=== PATIENT | male | born 2000 | race Caucasian/White ===

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

== ENCOUNTER 2020-07-15 20:03 | Observation (INO) | payer OTHER, SELFPAY ==
[2020-07-15] MEDS ORDERED: Lorazepam 2 MG/ML VIAL ONE (20:05)
[2020-07-15] MEDS ORDERED: Morphine 4 MG/ML VIAL ONE ×2 (20:11→20:59)
[2020-07-15] MEDS ORDERED: Ondansetron PF 4 MG/2 ML Vial ONE (20:11)
[2020-07-15 20:51] LABS: #Eosinphils 0.1 thou/uL (0.0-0.7); #Lymphocytes 2.5 thou/uL (1.20-3.40); #Monocytes 0.7 thou/uL (0.11-0.59); #Neutrophils 5.7 thou/uL (1.40-6.50); %Basophils 0.3 % (0.0-1.0); %Eosinophils 1.6 % (0.0-10.0); %Lymphocytes 27.2 % (28.0-48.0); %Monocytes 8.2 % (0.0-4.0); %Neutrophils 62.6 % (31.0-61.0); Hemoglobin 16.7 g/dL (14.0-18.0); Mean Corpuscular HGB CONC 34.3 g/dL (32.0-36.0); Mean Corpuscular Hemoglobin 29.5 pg (25.0-35.0); Mean Corpuscular Volume 86.2 fL (78.0-98.0); Mean Platelet Volume 6.9 fL (7.4-10.4); Platelet Count 354 thou/uL (130-400); RBC Distribution Width 11.2 % (11.5-14.5); Red Blood Cell (RBC) Count 5.66 mill/uL (4.00-5.20)
[2020-07-15 21:07] LABS: ALT (SGPT) 26 U/L (8-55); AST (SGOT) 21 U/L (5-34); Albumin 4.8 g/dL (3.5-5.0); Alkaline Phosphatase 66 U/L (50-130); Anion Gap 19 mmol/L (10-20); BUN (Urea Nitrogen) 16 mg/dL (8.9-20.6); Bilirubin, Total 0.8 mg/dL (0.2-1.2); Calc. Creatinine Clearance 0 mL/min (70-130); Calcium 9.6 mg/dL (7.8-10.44); Carbon Dioxide 23 mmol/L (22-29); Chloride 104 mmol/L (98-107); Glucose 103 mg/dL (70-105); Lipase 21 U/L (8-78); Potassium 3.6 mmol/L (3.5-5.1); Protein, Total 7.8 g/dL (6.0-8.3); Sodium 142 mmol/L (136-145)
[2020-07-15 21:08] LABS: Acetaminophen Less than 6.0 mcg/mL (10.0-30.0); Alcohol Less than 10 mg/dL (Less than 10); Salicylate Less than 8.0 mg/dL (15.0-30.0)
--- NOTE | 2020-07-15 21:10 | RAD ---
PORTABLE CHEST: 07/15/20 PROVIDED CLINICAL HISTORY: Altered mental status. FINDINGS: Comparison 08/31/19. The cardiac silhouette appears enlarged, which may be at least partially on the basis of portable bing hnique. No focal consolidation is evident. Evaluation for pleural fluid or pneumothorax is limited gi kwame the supine nature of the study, without gross evidence for such. IMPRESSION: No evidence for an acute cardiopulmonary process. POS: [facility]
--- NOTE | 2020-07-15 21:28 | CT ---
EXAM: CT brain without contrast HISTORY: Altered mental status COMPARISON: 08/31/2019 TECHNIQUE: Multiple contiguous axial images were obtained and a CT of the brain without contrast. FINDINGS: The brain is normal in morphology and attenuation without focal lesions or confluent areas of infarction. There is no evidence of hydrocephalus, intracranial hemorrhage, or extra-axial fluid collection. The calvarium and overlying soft tissues are unremarkable. The visualized paranasal sinuses and masto id air cells are well aerated. IMPRESSION: No evidence of acute intracranial abnormality
--- NOTE | 2020-07-15 21:35 | CT ---
CT Abdomen Pelvis W Con: 07/15/2020 9:00 PM CLINICAL INFORMATION: Left-sided abdominal pain COMPARISON: 12/27/2019 TECHNIQUE: Multiple contiguous axial images were obtained and a CT of the abdomen and pelvis with IV contrast. C oronal and sagittal reformats were performed. FINDINGS: Lower Chest: within normal limits. Abdomen: Liver: within normal limits. Bile Ducts: Normal caliber. Gallbladder: No calcified gallstones. Normal caliber wall. Pancreas: within normal limits. Spleen: Calcified granuloma. Mildly enlarged measuring 14.1 cm. Adrenals: within normal limits. Kidneys: within normal limits. Pelvis: Reproductive Organs: No pelvic masses. Ureters: within normal limits. Bladder: within normal limits. Peritoneum: No ascites or free air, no fluid collection. Bowel: Normal caliber. Mesentery and Retroperitoneum: No enlarged mesenteric or retroperitoneal lymph nodes. Vessels: Normal. Abdominal Wall: within normal limits. Bones: Bilateral L5 pars defects. IMPRESSION: 1. No evidence of acute intraabdominal or pelvic abnormality. 2. Stable mild splenomegaly
[2020-07-15] MEDS ORDERED: diphenhydrAMINE 50 MG/ML VIAL ONE (21:41)
[2020-07-15] MEDS ORDERED: Haloperidol Lactate 5 MG/ML VIAL ONE (21:50)
[2020-07-15 23:18] LABS: Amphetamine Not Detected (NotDetected); Barbiturates Screen Not Detected (NotDetected); Benzodiazepine Screen Detected (NotDetected); Cocaine Metabolite Screen Not Detected (NotDetected); Medtox Control Line Valid? VALID (VALID); Medtox Reader # READER 1; Methadone Not Detected (NotDetected); Methamphetamine Not Detected (NotDetected); Opiate Screen Detected (NotDetected); Oxycodone Screen Not Detected (NotDetected); Phencyclidine (PCP) Not Detected (NotDetected); THC/Cannabinoid Screen Not Detected (NotDetected); Tricyclic Screen Not Detected (NotDetected)
--- NOTE | 2020-07-16 00:11 | PDOC.HHP ---
Hospitalist HPI - History of Present Illness AMS History of Present Illness: This is a 22-year-old male patient with no significant past medical history besides recent left upper quadrant pain with splenomegaly presents today with brief episodes of altered mental status. He is a bounce back He was recently seen here and managed for right upper quadrant pain which turned out to be mild splenomegaly with no clear etiology. Today he was driving to [place] with his family when they noticed that he had sanchez ddenly planned out if his eyes rolled up was and was mute. They brought him to the ED for further evaluation. As presentation his blood pressure was 148/107, pulse 126, respiratory 20 and saturating 98 on room air. His temperature was 97.9. Labs showed no significant abnormalities. UDS was positive for opiates and benzodiazepine. He was given 1 L normal saline, Benadryl, morphine and Haldol with subsequent spontaneous resolution of his altered mental state. At the time of my evaluation he was A and O x4 in no acute distress besides complaining of mild left upper quadrant pain. He denied any chest pain shortness of breath vomiting diarrhea constipation. CT scan of his head was negative. Abdominal CT showed no acute events besides stable mild splenomegaly. Hospitalist ROS - Review of Systems Constitutional: denies: fever, chills, sweats, weakness Respiratory: denies: cough, dry, shortness of breath, hemoptysis Cardiovascular: denies: chest pain, palpitations, orthopnea, paroxysmal noc. dyspnea Gastrointestinal: reports: abdominal pain. denies: nausea, vomiting, diarrhea, constipation (Left upper quadrant) Musculoskeletal: denies: neck pain, shoulder pain, arm pain Neurological: denies: weakness, numbness, incoordination Hospitalist History - Past Medical History Other Medical History: Mild splenic enlargement. - Past Surgical History Past Surgical History: reports: no pertinent history - Family History Family History: reports: no pertinent history - Social History Smoking Status: Never smoker Alcohol: reports: None Living Situation: With Family - Exam General Appearance: awake alert General - other findings: In no acute distress Eye: PERRL, anicteric sclera ENT: normocephalic atraumatic, no oropharyngeal lesions Neck: supple, symmetric, no JVD, no thyromegaly Heart: RRR, no murmur, no gallops, no rubs Respiratory: CTAB, no wheezes, no rales, no ronchi Gastrointestinal: soft, non-distended (Left upper quadrant), normal bowel sounds, tender to palpation Extremities: no cyanosis, no clubbing, no edema Neurological: cranial nerve grossly intact, no weakness, no focal deficits Musculoskeletal: normal tone, normal strength, no muscle wasting Psychiatric: normal affect, normal behavior, A&O x 3 Hospitalist Results - Labs Result Diagrams: 07/16/20 05:00 07/16/20 05:00 Lab results: WBC 9.0 thou/uL (4.8-10.8) 07/15/20 20:07 Hgb 16.7 g/dL (14.0-18.0) 07/15/20 20:07 Hct 48.8 % (42.0-52.0) 07/15/20 20:07 MCV 86.2 fL (78.0-98.0) 07/15/20 20:07 Plt Count 354 thou/uL (130-400) 07/15/20 20:07 Neutrophils % 62.6 % (31.0-61.0) H 07/15/20 20:07 Sodium 142 mmol/L (136-145) 07/15/20 20:07 Potassium 3.6 mmol/L (3.5-5.1) 07/15/20 20:07 Chloride 104 mmol/L (98-107) 07/15/20 20:07 Carbon Dioxide 23 mmol/L (22-29) 07/15/20 20:07 BUN 16 mg/dL (8.9-20.6) 07/15/20 20:07 Creatinine 0.99 mg/dL (0.7-1.3) 07/15/20 20:07 Glucose 103 mg/dL (70-105) 07/15/20 20:07 Calcium 9.6 mg/dL (7.8-10.44) 07/15/20 20:07 Total Bilirubin 0.8 mg/dL (0.2-1.2) 07/15/20 20:07 AST 21 U/L (5-34) 07/15/20 20:07 ALT 26 U/L (8-55) 07/15/20 20:07 Alkaline Phosphatase 66 U/L (50-130) 07/15/20 20:07 Troponin I Less than 0.010 ng/mL (< 0.028) 07/15/20 20:07 Serum Total Protein 7.8 g/dL (6.0-8.3) 07/15/20 20:07 Albumin 4.8 g/dL (3.5-5.0) 07/15/20 20:07 Lipase 21 U/L (8-78) 07/15/20 20:07 Hospitalist H&P A/P - Plan Plan: This is a 20-year-old male patient with a history of mild splenomegaly presenting with altered mental status of unclear etiology. Currently resolved and back to baseline. Acute encephalopathy Etiology not clear possible seizure We will admit and observe him overnight. Neuro evaluation in a.m. Mild splenomegaly This is stable We will monitor. Abnormal UDS. Has been opiates and benzodiazepines He is on not on his medication list Possible abuse VT prophylaxisSCD CODE STATUSfull code
[2020-07-16 01:58] VITALS: BMI 31.1
[2020-07-16] MEDS ORDERED: traMADol HCl 50 MG TAB PO SCH (04:00)
[2020-07-16 05:30] LABS: #Eosinphils 0.1 thou/uL (0.0-0.7); #Lymphocytes 1.4 thou/uL (1.20-3.40); #Monocytes 0.4 thou/uL (0.11-0.59); #Neutrophils 4.5 thou/uL (1.40-6.50); %Basophils 0.7 % (0.0-1.0); %Eosinophils 0.8 % (0.0-10.0); %Lymphocytes 22.2 % (28.0-48.0); %Monocytes 6.5 % (0.0-4.0); %Neutrophils 69.8 % (31.0-61.0); Hemoglobin 14.5 g/dL (14.0-18.0); Mean Corpuscular HGB CONC 35.4 g/dL (32.0-36.0); Mean Corpuscular Hemoglobin 30.8 pg (25.0-35.0); Mean Platelet Volume 6.9 fL (7.4-10.4); Platelet Count 254 thou/uL (130-400); RBC Distribution Width 11.1 % (11.5-14.5); Red Blood Cell (RBC) Count 4.71 mill/uL (4.00-5.20); White Blood Cell (WBC) Count 6.5 thou/uL (4.8-10.8)
[2020-07-16 05:52] LABS: Anion Gap 11 mmol/L (10-20); BUN (Urea Nitrogen) 12 mg/dL (8.9-20.6); Calc. Creatinine Clearance 184 mL/min (70-130); Calcium 8.7 mg/dL (7.8-10.44); Carbon Dioxide 29 mmol/L (22-29); Chloride 106 mmol/L (98-107); Glucose 82 mg/dL (70-105); Potassium 3.8 mmol/L (3.5-5.1); Sodium 142 mmol/L (136-145)
[2020-07-16] MEDS ORDERED: traMADol HCl 50 MG TAB PO PRN (08:31)
[2020-07-16] MEDS ORDERED: Ketorolac Tromethamine 30 MG/ML VIAL IVP PRN (08:31)
[2020-07-16 09:51] LABS: SARS-CoV-2 MS2 Positive; SARS-CoV-2 N Gene Negative; SARS-CoV-2 S Gene Negative; SARS-CoV-2 by NAA Not Detected (NotDetected); SARS-CoV-2 orf1ab Negative
[2020-07-16 12:07] VITALS: BP 121/67; TEMP 97.9
--- NOTE | 2020-07-16 12:35 | CON ---
DATE OF CONSULTATION: 07/16/2020 CONSULTING PHYSICIAN: Hospitalist Service. IMPRESSION: First seizure with a negative workup. PLAN: The patient can be discharged home with seizure precautions. HISTORY OF PRESENT ILLNESS: Mr. 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 He apparently had a witnessed seizure at some point prior to admission. He had been complaining of some left upper quadrant pain prior to the onset. He does not recall any type of prodromal sensation before he blacked out. He was subsequently admitted. His CT of the brain was unremarkable. All his lab work was in normal range. He had an EEG done earlier, which is normal as well. He denies a past history of head injury, meningitis, or encephalitis. There is no family history of seizures. He was on no medications. He was given some pain medicine and a benzodiazepine in the emergency room. He otherwise is back to his baseline. ALLERGIES: NONE. SOCIAL HISTORY: No tobacco or alcohol use. FAMILY HISTORY: Noncontributory. REVIEW OF SYSTEMS: Ten-system review of systems is otherwise negative. PHYSICAL EXAMINATION: GENERAL: He is a healthy-appearing young man, in no distress. VITAL SIGNS: Stable. He has been afebrile. HEENT: Pupils are equal and reactive. Conjunctivae are clear. NECK: Supple. SKIN: Clear. ABDOMEN: Soft. EXTREMITIES: No cyanosis or edema. NEUROLOGIC: He is alert and appropriate. His speech is fluent and clear. He has no focal deficits or abnormal movements. SUMMARY: He is a young healthy young man with a first seizure. He does not appear to have any predisposing factors. His workup is otherwise unremarkable. I think he can be discharged home for outpatient followup. Job ID: [id number]
--- NOTE | 2020-07-16 15:57 | PDOC.DS.DS ---
Provider - Provider Date of Admission: 07/15/20 23:59 Date of Discharge: 07/16/20 Admitting Provider: Gama Bear MD Consultations: Neurology Primary Care Physician: NO PCP PROVIDER Course - Hospital Course Hospital Course: Mr. Hansen is a 20-year-old patient who was hospitalized after he suffered what appeared to be a seizure episode while out with family. He has no prior history of seizures. He was admitted and he had CT of the head done that did not show any acute findings. He subsequently had an EEG which per neurology did not show any evidence of acute seizures. He was noted to have mild splenomegaly during his last hospitalization but his CBC was completely normal. We discussed options for seizure precautions. He knows that he should not drive at least for the next 3 months or until he sees a neurologist. He will take Tylenol as needed for pain. He is discharged today in a stable condition. Resuscitation Status: 07/16/20 00:06 Resuscitation Status Routine Resuscitation Status: FULL: Full Resuscitation - Labs Lab Results: 07/16/20 05:00 07/16/20 05:00 Abnormal Lab Results - Last 48 hrs 07/15/20 20:07: RBC 5.66 H, RDW 11.2 L, MPV 6.9 L, Neutrophils % 62.6 H, Lymphocytes % 27.2 L, Monocytes % 8.2 H, Monocytes # 0.7 H 07/15/20 20:07: Salicylates Less than 8.0 L, Acetaminophen Less than 6.0 L 07/15/20 22:26: Urine Opiates Screen Detected H, U Benzodiazepines Scrn Detected H 07/16/20 05:00: Hct 41.0 L, RDW 11.1 L, MPV 6.9 L, Neutrophils % 69.8 H, Lymphocytes % 22.2 L, Monocytes % 6.5 H - Physical Exam Vitals: Vital Signs (12 hours) Temp Pulse Resp BP Pulse Ox 07/16/20 11:23 97.9 F 86 16 121/67 96 07/16/20 07:34 97.8 F 87 18 122/70 98 07/16/20 04:00 97.4 F L 70 20 118/68 99 Weight Weight 211 lb 3.2 oz Physical Exam: The patient was seen and examined on the day of discharge. Problem - Problem (1) Abdominal pain Code(s): R10.9 - UNSPECIFIED ABDOMINAL PAIN Status: Acute (2) Anxiety disorder Code(s): F41.9 - ANXIETY DISORDER, UNSPECIFIED Status: Chronic Qualifiers: Anxiety disorder type: generalized anxiety disorder Qualified Code(s): F41.1 - Generalized anxiety disorder - Time spent with Patient (mins): 30 Plan - Discharge Medications Home Medications: Medication Instructions Recorded Confirmed Type No Known 08/31/19 07/16/20 History Allergies: No Known Allergies Allergy (Verified 07/16/20 02:09) per pt - Discharge Instructions Activity:: Activity as Tolerated Nourishment:: No Restrictions Therapies:: Not Applicable Equipment/Supplies:: Not Applicable - Follow up Plan Referrals: Monty Paulino MD [Active] - 3-4 Weeks PROVIDER,NO PCP [Primary Care Provider] - 10 Days Disposition: HOME Quality - Care Measures CORE MEASURES:: N/A
== END 2020-07-16 15:25 | disposition home or self-care (01) ==
LOC: ERS 20:03 → EEVIPCON 20:03 → 2SE 23:59 → UNDOADMOB 07-16 → 2SE 07-16
PROVIDERS: ADMIT Student in an Organized Health Care Education/Training Program; ATTEND Hospitalist
DX: G93.40 Encephalopathy, unspecified (principal); R16.1 Splenomegaly, not elsewhere classified; F41.1 Generalized anxiety disorder; Z20.828 Contact with and (suspected) exposure to other viral communicable diseases
CPT/HCPCS: 36415; 36416; 70450; 71045; 74177; 80048; 80053; 80306; 80307; 83690; 84484; 85025; 87635; 93005; 95816; 95819; 96374; 96375; 96376; G0378; J1200; J1630; J1885; J2060; J2270; J2405; Q9967; U0003

== ENCOUNTER 2021-01-18 08:30 | Emergency (ER) | payer SELFPAY ==
[2021-01-18] MEDS ORDERED: Lorazepam 2 MG/ML VIAL ONE (08:40)
[2021-01-18 08:56] LABS: #Eosinphils 0.2 thou/uL (0.0-0.7); #Lymphocytes 2.1 thou/uL (1.20-3.40); #Monocytes 0.9 thou/uL (0.11-0.59); #Neutrophils 3.3 thou/uL (1.40-6.50); %Basophils 0.4 % (0.0-1.0); %Eosinophils 2.4 % (0.0-10.0); %Lymphocytes 32.6 % (28.0-48.0); %Monocytes 13.4 % (0.0-4.0); %Neutrophils 51.1 % (31.0-61.0); Mean Corpuscular HGB CONC 33.6 g/dL (32.0-36.0); Mean Corpuscular Volume 89.2 fL (78.0-98.0); Mean Platelet Volume 7.1 fL (7.4-10.4); Platelet Count 308 thou/uL (130-400); RBC Distribution Width 11.3 % (11.5-14.5); Red Blood Cell (RBC) Count 5.68 mill/uL (4.00-5.20); White Blood Cell (WBC) Count 6.5 thou/uL (4.8-10.8)
[2021-01-18 09:16] LABS: ALT (SGPT) 27 U/L (8-55); AST (SGOT) 35 U/L (5-34); Albumin 4.6 g/dL (3.5-5.0); Alkaline Phosphatase 65 U/L (50-130); Anion Gap 17 mmol/L (10-20); BUN (Urea Nitrogen) 11 mg/dL (8.9-20.6); Bilirubin, Total 0.4 mg/dL (0.2-1.2); Calc. Creatinine Clearance 0 mL/min (70-130); Calcium 9.6 mg/dL (7.8-10.44); Carbon Dioxide 19 mmol/L (22-29); Chloride 107 mmol/L (98-107); Globulin 3.8 g/dL (2.4-3.5); Glucose 101 mg/dL (70-105); Potassium 3.8 mmol/L (3.5-5.1); Protein, Total 8.4 g/dL (6.0-8.3); Sodium 139 mmol/L (136-145)
== END 2021-01-18 10:50 | disposition home or self-care (01) ==
LOC: ERS 08:30 → EEVIPCON 08:30 → ERS 10:50
DX: R56.9 Unspecified convulsions (principal); F41.9 Anxiety disorder, unspecified; J45.909 Unspecified asthma, uncomplicated
CPT/HCPCS: 80053; 85025; 93005; 96374; J2060

== ENCOUNTER 2021-05-30 17:40 | Emergency (ER) | payer MEDICARE ==
[2021-05-30] MEDS ORDERED: Ketorolac Tromethamine 30 MG/ML VIAL ONE (17:52)
[2021-05-30] MEDS ORDERED: Lorazepam 2 MG/ML VIAL ONE (17:52)
== END 2021-05-30 19:25 | disposition home or self-care (01) ==
LOC: ERS 17:40
DX: S93.401A Sprain of unspecified ligament of right ankle, initial encounter (principal); W10.9XXA Fall (on) (from) unspecified stairs and steps, initial encounter
CPT/HCPCS: 96374; 96375; J1885; J2060

== ENCOUNTER 2022-04-18 06:45 | Emergency (ER) | payer MEDICARE ==
[2022-04-18] MEDS ORDERED: LORazepam 2 MG/ML SYRINGE ONE (06:49)
[2022-04-18 07:10] LABS: #Eosinphils 0.2 thou/uL (0.0-0.7); #Lymphocytes 2.5 thou/uL (1.20-3.40); #Monocytes 0.6 thou/uL (0.11-0.59); #Neutrophils 2.7 thou/uL (1.40-6.50); %Eosinophils 3.9 % (0.0-10.0); %Lymphocytes 41.6 % (21.0-51.0); %Monocytes 9.7 % (0.0-10.0); %Neutrophils 44.8 % (42.0-75.0); Hemoglobin 16.4 g/dL (14.0-18.0); Mean Corpuscular HGB CONC 35.3 g/dL (32.0-36.0); Mean Corpuscular Hemoglobin 31.3 pg (27.0-31.0); Mean Corpuscular Volume 88.6 fL (78.0-98.0); Mean Platelet Volume 6.8 fL (7.4-10.4); Platelet Count 306 thou/uL (130-400); Red Blood Cell (RBC) Count 5.24 mill/uL (4.70-6.10)
[2022-04-18 07:34] LABS: ALT (SGPT) 32 U/L (8-55); AST (SGOT) 26 U/L (5-34); Albumin 4.8 g/dL (3.5-5.0); Alkaline Phosphatase 67 U/L (40-110); Anion Gap 14 mmol/L (10-20); BUN (Urea Nitrogen) 21 mg/dL (8.9-20.6); Bilirubin, Total 0.9 mg/dL (0.2-1.2); Calc. Creatinine Clearance 0 mL/min (70-130); Calcium 9.6 mg/dL (7.8-10.44); Carbon Dioxide 24 mmol/L (22-29); Chloride 103 mmol/L (98-107); Estimated GFR 94; Glucose 107 mg/dL (70-105); Protein, Total 7.8 g/dL (6.0-8.3); Sodium 138 mmol/L (136-145)
[2022-04-18 07:41] LABS: Potassium 2.9 mmol/L (3.5-5.1)
[2022-04-18] MEDS ORDERED: Potassium Chloride 20 MEQ TAB ONE (08:07)
== END 2022-04-18 08:22 | disposition home or self-care (01) ==
LOC: ERS 06:45
DX: G40.909 Epilepsy, unspecified, not intractable, without status epilepticus (principal)
CPT/HCPCS: 36415; 80053; 83605; 84146; 85025; 96374

== ENCOUNTER 2022-05-13 14:29 | Emergency (ER) | payer MEDICARE ==
[2022-05-13] MEDS ORDERED: Metoclopramide HCl 10 MG/2 ML VIAL ONE (14:43)
[2022-05-13 14:58] LABS: #Eosinphils 0.5 thou/uL (0.0-0.7); #Lymphocytes 2.2 thou/uL (1.20-3.40); #Monocytes 0.8 thou/uL (0.11-0.59); #Neutrophils 3.9 thou/uL (1.40-6.50); %Basophils 0.2 % (0.0-1.0); %Eosinophils 6.9 % (0.0-10.0); %Monocytes 10.4 % (0.0-10.0); %Neutrophils 52.5 % (42.0-75.0); Hemoglobin 15.8 g/dL (14.0-18.0); Mean Corpuscular Volume 88.5 fL (78.0-98.0); Platelet Count 323 thou/uL (130-400); RBC Distribution Width 11.3 % (11.5-14.5); Red Blood Cell (RBC) Count 5.26 mill/uL (4.70-6.10); White Blood Cell (WBC) Count 7.4 thou/uL (4.8-10.8)
[2022-05-13 15:08] LABS: ALT (SGPT) 42 U/L (8-55); AST (SGOT) 31 U/L (5-34); Acetaminophen Less than 10.0 mcg/mL (10.0-30.0); Albumin 4.6 g/dL (3.5-5.0); Alcohol Less than 10 mg/dL (Less than 10); Alkaline Phosphatase 67 U/L (40-110); Anion Gap 16 mmol/L (10-20); BUN (Urea Nitrogen) 14 mg/dL (8.9-20.6); Bilirubin, Total 0.8 mg/dL (0.2-1.2); CK (CPK) 90 U/L (30-200); Calc. Creatinine Clearance 0 mL/min (70-130); Calcium 9.3 mg/dL (7.8-10.44); Carbon Dioxide 22 mmol/L (22-29); Chloride 105 mmol/L (98-107); Estimated GFR 118; Globulin 2.9 g/dL (2.4-3.5); Glucose 94 mg/dL (70-105); Potassium 3.8 mmol/L (3.5-5.1); Protein, Total 7.5 g/dL (6.0-8.3); Salicylate Less than 8.0 mg/dL (15.0-30.0); Sodium 139 mmol/L (136-145)
[2022-05-13 15:43] LABS: Bilirubin Negative (Negative); Blood, Urine Negative (Negative); Clarity Clear (Clear); Glucose, Urine (Dipstick) Normal (Negative); Ketone, Urine Negative (Negative); Leukocyte Negative Leu/uL (Negative); Nitrite Negative (Negative); Protein, Urine (Dipstick) 10 mg/dL (Neg-Trace); Specific Gravity, Urine 1.029 (1.002-1.036)
[2022-05-13] MEDS ORDERED: Ketorolac Tromethamine 30 MG/ML VIAL ONE (15:43)
[2022-05-13 15:52] LABS: Amphetamine Not Detected (NotDetected); Barbiturates Screen Not Detected (NotDetected); Benzodiazepine Screen Not Detected (NotDetected); Cocaine Metabolite Screen Not Detected (NotDetected); Methadone Not Detected (NotDetected); Methamphetamine Not Detected (NotDetected); Opiate Screen Not Detected (NotDetected); Oxycodone Screen Not Detected (NotDetected); Phencyclidine (PCP) Not Detected (NotDetected); THC/Cannabinoid Screen Not Detected (NotDetected); Tricyclic Screen Not Detected (NotDetected)
== END 2022-05-13 16:36 | disposition home or self-care (01) ==
LOC: ERS 14:29
DX: R56.9 Unspecified convulsions (principal)
CPT/HCPCS: 36415; 70450; 80053; 80306; 80307; 81003; 82550; 83605; 85025; 93005; 96374; 96375; J1885; J2765

== ENCOUNTER 2022-07-09 15:38 | Emergency (ER) | payer MEDICARE ==
[2022-07-09] MEDS ORDERED: LORazepam 2 MG/ML SYR.(CARPUJECT) ONE (15:51)
[2022-07-09 15:54] LABS: #Eosinphils 0.3 thou/uL (0.0-0.7); #Lymphocytes 2.4 thou/uL (1.20-3.40); #Monocytes 0.7 thou/uL (0.11-0.59); #Neutrophils 5.1 thou/uL (1.40-6.50); %Basophils 0.3 % (0.0-1.0); %Eosinophils 3.7 % (0.0-10.0); %Lymphocytes 27.6 % (21.0-51.0); %Monocytes 8.2 % (0.0-10.0); %Neutrophils 60.2 % (42.0-75.0); Hemoglobin 16.7 g/dL (14.0-18.0); Mean Corpuscular HGB CONC 35.2 g/dL (32.0-36.0); Mean Corpuscular Hemoglobin 31.4 pg (27.0-31.0); Mean Corpuscular Volume 89.1 fl (78.0-98.0); Mean Platelet Volume 7.1 fL (7.4-10.4); Platelet Count 316 10x3/uL (130-400); RBC Distribution Width 11.4 % (11.5-14.5); Red Blood Cell (RBC) Count 5.32 mill/uL (4.70-6.10); White Blood Cell (WBC) Count 8.5 10x3/uL (4.8-10.8)
[2022-07-09 16:14] LABS: Anion Gap 18 mmol/L (10-20); BUN (Urea Nitrogen) 15 mg/dL (8.9-20.6); Calc. Creatinine Clearance 0 mL/min (70-130); Calcium 9.8 mg/dL (7.8-10.44); Carbon Dioxide 23 mmol/L (22-29); Chloride 103 mmol/L (98-107); Estimated GFR 95; Glucose 94 mg/dL (70-105); Potassium 3.6 mmol/L (3.5-5.1); Sodium 140 mmol/L (136-145)
== END 2022-07-09 17:27 | disposition home or self-care (01) ==
LOC: ERS 15:38
DX: R56.9 Unspecified convulsions (principal)
CPT/HCPCS: 80048; 84146; 85025; 96374; J2060

== ENCOUNTER 2022-08-06 10:22 | Emergency (ER) | payer MEDICARE ==
[2022-08-06 10:42] LABS: #Eosinphils 0.3 thou/uL (0.0-0.7); #Lymphocytes 2.2 thou/uL (1.20-3.40); #Monocytes 0.7 thou/uL (0.11-0.59); #Neutrophils 2.9 thou/uL (1.40-6.50); %Basophils 0.4 % (0.0-1.0); %Eosinophils 5.1 % (0.0-10.0); %Lymphocytes 35.6 % (21.0-51.0); %Monocytes 11.1 % (0.0-10.0); %Neutrophils 47.7 % (42.0-75.0); Mean Corpuscular HGB CONC 35.2 g/dL (32.0-36.0); Mean Corpuscular Hemoglobin 30.9 pg (27.0-31.0); Mean Corpuscular Volume 87.8 fl (78.0-98.0); Mean Platelet Volume 7.1 fL (7.4-10.4); Platelet Count 308 10x3/uL (130-400); RBC Distribution Width 11.3 % (11.5-14.5); Red Blood Cell (RBC) Count 5.49 mill/uL (4.70-6.10); White Blood Cell (WBC) Count 6.1 10x3/uL (4.8-10.8)
[2022-08-06 11:06] LABS: ALT (SGPT) 59 U/L (8-55); AST (SGOT) 45 U/L (5-34); Albumin 4.9 g/dL (3.5-5.0); Alkaline Phosphatase 72 U/L (40-110); Anion Gap 22 mmol/L (10-20); BUN (Urea Nitrogen) 17 mg/dL (8.9-20.6); Bilirubin, Total 1.1 mg/dL (0.2-1.2); Calc. Creatinine Clearance 0 mL/min (70-130); Calcium 9.5 mg/dL (7.8-10.44); Carbon Dioxide 15 mmol/L (22-29); Chloride 105 mmol/L (98-107); Estimated GFR 124; Globulin 3.5 g/dL (2.4-3.5); Glucose 94 mg/dL (70-105); Potassium 4.2 mmol/L (3.5-5.1); Protein, Total 8.4 g/dL (6.0-8.3); Sodium 138 mmol/L (136-145)
[2022-08-06 13:30] LABS: Bilirubin Negative (Negative); Blood, Urine Negative (Negative); Clarity Clear (Clear); Glucose, Urine (Dipstick) Normal (Negative); Ketone, Urine Negative (Negative); Leukocyte Negative Leu/uL (Negative); Nitrite Negative (Negative); Protein, Urine (Dipstick) Negative (Neg-Trace); Specific Gravity, Urine 1.025 (1.002-1.036); Urobilinogen Normal mg/dL (Less than 2); pH, Urine 6.5 (5.0-9.0)
== END 2022-08-06 14:07 | disposition home or self-care (01) ==
LOC: ERS 10:22
DX: R56.9 Unspecified convulsions (principal)
CPT/HCPCS: 80053; 81003; 85025; 96365

== ENCOUNTER 2022-09-05 12:21 | Emergency (ER) | payer MEDICARE ==
[2022-09-05 13:00] LABS: #Eosinphils 0.2 thou/uL (0.0-0.7); #Lymphocytes 1.9 thou/uL (1.20-3.40); #Monocytes 0.5 thou/uL (0.11-0.59); %Basophils 0.6 % (0.0-1.0); %Eosinophils 3.6 % (0.0-10.0); %Lymphocytes 28.6 % (21.0-51.0); %Neutrophils 59.3 % (42.0-75.0); Anion Gap 24 mmol/L (10-20); BUN (Urea Nitrogen) 12 mg/dL (8.9-20.6); Calc. Creatinine Clearance 0 mL/min (70-130); Calcium 9.5 mg/dL (7.8-10.44); Carbon Dioxide 16 mmol/L (22-29); Chloride 104 mmol/L (98-107); Estimated GFR 121; Glucose 85 mg/dL (70-105); Hemoglobin 15.9 g/dL (14.0-18.0); Mean Corpuscular HGB CONC 33.9 g/dL (32.0-36.0); Mean Corpuscular Hemoglobin 30.5 pg (27.0-31.0); Mean Platelet Volume 7.4 fL (7.4-10.4); Platelet Count 336 10x3/uL (130-400); Potassium 3.3 mmol/L (3.5-5.1); RBC Distribution Width 11.1 % (11.5-14.5); Red Blood Cell (RBC) Count 5.22 mill/uL (4.70-6.10); Sodium 141 mmol/L (136-145); White Blood Cell (WBC) Count 6.7 10x3/uL (4.8-10.8)
== END 2022-09-05 14:02 | disposition home or self-care (01) ==
LOC: ERS 12:21
DX: G40.909 Epilepsy, unspecified, not intractable, without status epilepticus (principal); F41.9 Anxiety disorder, unspecified; Z79.899 Other long term (current) drug therapy
CPT/HCPCS: 80048; 84146; 85025; 93005; 99284

== ENCOUNTER 2022-09-18 17:04 | Observation (INO) | payer MEDICARE, OTHER ==
[2022-09-18] MEDS ORDERED: LORazepam 2 MG/ML SYR.(CARPUJECT) ONE ×2 (17:33→18:58)
[2022-09-18] MEDS ORDERED: levETIRAcetam 500 MG/5 ML VIAL ONE (17:37)
[2022-09-18] MEDS ORDERED: Acetaminophen 500 MG TAB ONE (19:50)
[2022-09-18 20:26] LABS: Bilirubin Negative (Negative); Blood, Urine Negative (Negative); Clarity Clear (Clear); Glucose, Urine (Dipstick) Normal (Negative); Ketone, Urine Negative (Negative); Leukocyte Negative Leu/uL (Negative); Nitrite Negative (Negative); Protein, Urine (Dipstick) Negative (Neg-Trace); Specific Gravity, Urine 1.025 (1.002-1.036); pH, Urine 6.5 (5.0-9.0)
[2022-09-18 20:34] LABS: Amphetamine Not Detected (NotDetected); Barbiturates Screen Not Detected (NotDetected); Benzodiazepine Screen Detected (NotDetected); Cocaine Metabolite Screen Not Detected (NotDetected); Methadone Not Detected (NotDetected); Methamphetamine Not Detected (NotDetected); Opiate Screen Not Detected (NotDetected); Oxycodone Screen Not Detected (NotDetected); Phencyclidine (PCP) Not Detected (NotDetected); THC/Cannabinoid Screen Not Detected (NotDetected); Tricyclic Screen Not Detected (NotDetected)
[2022-09-18 20:41] LABS: #Eosinphils 0.2 thou/uL (0.0-0.7); #Lymphocytes 1.9 thou/uL (1.20-3.40); #Monocytes 0.5 thou/uL (0.11-0.59); #Neutrophils 4.3 thou/uL (1.40-6.50); %Basophils 0.2 % (0.0-1.0); %Eosinophils 3.4 % (0.0-10.0); %Lymphocytes 27.4 % (21.0-51.0); %Monocytes 7.3 % (0.0-10.0); %Neutrophils 61.6 % (42.0-75.0); Hemoglobin 16.4 g/dL (14.0-18.0); Mean Corpuscular HGB CONC 36.4 g/dL (32.0-36.0); Mean Corpuscular Hemoglobin 32.4 pg (27.0-31.0); Mean Corpuscular Volume 89.1 fl (78.0-98.0); Platelet Count 293 10x3/uL (130-400); RBC Distribution Width 11.3 % (11.5-14.5); Red Blood Cell (RBC) Count 5.07 mill/uL (4.70-6.10)
[2022-09-18 20:58] LABS: ALT (SGPT) 34 U/L (8-55); AST (SGOT) 23 U/L (5-34); Albumin 4.8 g/dL (3.5-5.0); Alkaline Phosphatase 73 U/L (40-110); Anion Gap 23 mmol/L (10-20); BUN (Urea Nitrogen) 15 mg/dL (8.9-20.6); Bilirubin, Total 0.6 mg/dL (0.2-1.2); Calc. Creatinine Clearance 0 mL/min (70-130); Calcium 9.4 mg/dL (7.8-10.44); Carbon Dioxide 17 mmol/L (22-29); Chloride 104 mmol/L (98-107); Estimated GFR 101; Globulin 2.9 g/dL (2.4-3.5); Glucose 76 mg/dL (70-105); Protein, Total 7.7 g/dL (6.0-8.3); Sodium 141 mmol/L (136-145)
[2022-09-18] MEDS ORDERED: Potassium Chloride 20 MEQ TAB PO SCH (23:00)
[2022-09-18] MEDS: Ibuprofen 600 MG TAB PO PRN (23:20)
[2022-09-19 02:08] VITALS: BMI 33.7
[2022-09-19 05:20] LABS: SARS-CoV-2 NAA Rapid Test Not Detected (NotDetected)
[2022-09-19 06:15] LABS: Anion Gap 12 mmol/L (10-20); BUN (Urea Nitrogen) 14 mg/dL (8.9-20.6); Calc. Creatinine Clearance 183 mL/min (70-130); Calcium 8.9 mg/dL (7.8-10.44); Carbon Dioxide 23 mmol/L (22-29); Cardiac Risk 5.4 (Less than 4.5); Chloride 108 mmol/L (98-107); Cholesterol 150 mg/dl (< 200 Desired); Estimated GFR 119; Glucose 88 mg/dL (70-105); HDL Cholesterol 28 mg/dL (>60 Neg Risk); LDL Cholesterol, Calculated 104 mg/dL; Potassium 3.7 mmol/L (3.5-5.1); Sodium 139 mmol/L (136-145); Triglycerides 92 mg/dL (Less than 150)
[2022-09-19] MEDS ORDERED: Atorvastatin Calcium 40 MG TAB PO SCH (09:00)
[2022-09-19] MEDS ORDERED: levETIRAcetam 500 MG TAB PO SCH (09:00)
[2022-09-19] MEDS ORDERED: Escitalopram Oxalate 20 mg Tablet PO SCH (09:00)
[2022-09-19] MEDS ORDERED: Ondansetron ODT 4 MG TAB PO SCH (11:15)
[2022-09-19] MEDS: Ibuprofen 600 MG TAB PO PRN (11:43)
[2022-09-19 12:22] VITALS: BP 125/75; TEMP 97.5
== END 2022-09-19 15:30 | disposition home or self-care (01) ==
LOC: ERS 17:04 → NEURO 20:47
PROVIDERS: ADMIT Student in an Organized Health Care Education/Training Program; ATTEND Student in an Organized Health Care Education/Training Program
DX: R56.9 Unspecified convulsions (principal); Z79.899 Other long term (current) drug therapy; Z20.822 Contact with and (suspected) exposure to COVID-19
CPT/HCPCS: 36415; 80048; 80053; 80061; 80177; 80306; 81003; 84146; 85025; 96365; 96375; 96376; G0378; J1953; J2060; Q0162

== ENCOUNTER 2022-10-14 09:39 | Emergency (ER) | payer OTHER ==
[2022-10-14] MEDS ORDERED: LORazepam 2 MG/ML SYR.(CARPUJECT) ONE (10:52)
[2022-10-14 11:04] LABS: #Eosinphils 0.2 thou/uL (0.0-0.7); #Lymphocytes 0.9 thou/uL (1.20-3.40); #Monocytes 0.5 thou/uL (0.11-0.59); #Neutrophils 4.8 thou/uL (1.40-6.50); %Basophils 0.1 % (0.0-1.0); %Eosinophils 2.5 % (0.0-10.0); %Lymphocytes 14.2 % (21.0-51.0); %Monocytes 7.3 % (0.0-10.0); %Neutrophils 75.9 % (42.0-75.0); Hemoglobin 15.5 g/dL (14.0-18.0); Mean Corpuscular Hemoglobin 30.9 pg (27.0-31.0); Mean Corpuscular Volume 88.3 fl (78.0-98.0); Platelet Count 285 10x3/uL (130-400); RBC Distribution Width 10.9 % (11.5-14.5); Red Blood Cell (RBC) Count 5.01 mill/uL (4.70-6.10); White Blood Cell (WBC) Count 6.4 10x3/uL (4.8-10.8)
[2022-10-14 11:24] LABS: ALT (SGPT) 40 U/L (8-55); AST (SGOT) 34 U/L (5-34); Albumin 4.4 g/dL (3.5-5.0); Alkaline Phosphatase 70 U/L (40-110); Anion Gap 12 mmol/L (10-20); BUN (Urea Nitrogen) 16 mg/dL (8.9-20.6); Bilirubin, Total 0.4 mg/dL (0.2-1.2); Calc. Creatinine Clearance 0 mL/min (70-130); Carbon Dioxide 23 mmol/L (22-29); Chloride 106 mmol/L (98-107); Estimated GFR 124; Globulin 2.8 g/dL (2.4-3.5); Glucose 100 mg/dL (70-105); Potassium 3.8 mmol/L (3.5-5.1); Protein, Total 7.2 g/dL (6.0-8.3); Sodium 137 mmol/L (136-145)
[2022-10-14 11:57] LABS: Bilirubin Negative (Negative); Blood, Urine Negative (Negative); Clarity Clear (Clear); Glucose, Urine (Dipstick) Normal (Negative); Ketone, Urine Negative (Negative); Leukocyte Negative Leu/uL (Negative); Nitrite Negative (Negative); Protein, Urine (Dipstick) Negative (Neg-Trace); Specific Gravity, Urine 1.017 (1.002-1.036); Urobilinogen Normal mg/dL (Less than 2); pH, Urine 6.5 (5.0-9.0)
[2022-10-14 12:05] LABS: Amphetamine Not Detected (NotDetected); Barbiturates Screen Not Detected (NotDetected); Benzodiazepine Screen Not Detected (NotDetected); Cocaine Metabolite Screen Not Detected (NotDetected); Methadone Not Detected (NotDetected); Methamphetamine Not Detected (NotDetected); Opiate Screen Not Detected (NotDetected); Oxycodone Screen Not Detected (NotDetected); Phencyclidine (PCP) Not Detected (NotDetected); THC/Cannabinoid Screen Not Detected (NotDetected); Tricyclic Screen Not Detected (NotDetected)
[2022-10-14] MEDS ORDERED: Ketorolac Tromethamine 30 MG/ML VIAL ONE (13:32)
== END 2022-10-14 14:05 | disposition home or self-care (01) ==
LOC: ERS 09:39
DX: R56.9 Unspecified convulsions (principal)
CPT/HCPCS: 36415; 70450; 80053; 80177; 80306; 81003; 84146; 85025; 96374; 96376; J1885; J2060

== ENCOUNTER 2022-11-22 14:03 | Emergency (ER) | payer OTHER ==
[2022-11-22] MEDS ORDERED: Haloperidol Lactate 5 MG/ML VIAL ONE (14:31)
[2022-11-22 14:44] LABS: #Eosinphils 0.2 thou/uL (0.0-0.7); #Lymphocytes 1.9 thou/uL (1.20-3.40); #Monocytes 0.5 thou/uL (0.11-0.59); #Neutrophils 4.3 thou/uL (1.40-6.50); %Basophils 0.3 % (0.0-1.0); %Eosinophils 3.3 % (0.0-10.0); %Lymphocytes 27.8 % (21.0-51.0); %Monocytes 7.1 % (0.0-10.0); %Neutrophils 61.4 % (42.0-75.0); Hemoglobin 16.4 g/dL (14.0-18.0); Mean Corpuscular HGB CONC 34.9 g/dL (32.0-36.0); Mean Corpuscular Hemoglobin 30.9 pg (27.0-31.0); Mean Corpuscular Volume 88.7 fl (78.0-98.0); Mean Platelet Volume 7.2 fL (7.4-10.4); Platelet Count 343 10x3/uL (130-400); RBC Distribution Width 11.2 % (11.5-14.5); Red Blood Cell (RBC) Count 5.31 mill/uL (4.70-6.10); White Blood Cell (WBC) Count 6.9 10x3/uL (4.8-10.8)
[2022-11-22 15:04] LABS: ALT (SGPT) 37 U/L (8-55); AST (SGOT) 26 U/L (5-34); Alkaline Phosphatase 68 U/L (40-110); Anion Gap 21 mmol/L (10-20); BUN (Urea Nitrogen) 15 mg/dL (8.9-20.6); Bilirubin, Total 0.6 mg/dL (0.2-1.2); Calc. Creatinine Clearance 0 mL/min (70-130); Carbon Dioxide 22 mmol/L (22-29); Chloride 106 mmol/L (98-107); Estimated GFR 95; Glucose 97 mg/dL (70-105); Magnesium 1.8 mg/dL (1.6-2.6); Potassium 4.2 mmol/L (3.5-5.1); Sodium 145 mmol/L (136-145)
== END 2022-11-22 17:17 | disposition home or self-care (01) ==
LOC: ERS 14:03
DX: R56.9 Unspecified convulsions (principal)
CPT/HCPCS: 80053; 83735; 85025; 93005; 96374; J1630

== ENCOUNTER 2022-11-25 12:30 | Emergency (ER) | payer OTHER ==
[2022-11-25] MEDS ORDERED: LORazepam 2 MG/ML SYR.(CARPUJECT) ONE (12:38)
[2022-11-25 12:49] LABS: #Eosinphils 0.1 thou/uL (0.0-0.7); #Lymphocytes 1.6 thou/uL (1.20-3.40); #Monocytes 0.4 thou/uL (0.11-0.59); #Neutrophils 3.9 thou/uL (1.40-6.50); %Basophils 0.4 % (0.0-1.0); %Lymphocytes 26.5 % (21.0-51.0); %Monocytes 6.3 % (0.0-10.0); %Neutrophils 64.9 % (42.0-75.0); Hemoglobin 16.5 g/dL (14.0-18.0); Mean Corpuscular Hemoglobin 32.1 pg (27.0-31.0); Mean Corpuscular Volume 89.1 fl (78.0-98.0); Mean Platelet Volume 7.4 fL (7.4-10.4); Platelet Count 288 10x3/uL (130-400); RBC Distribution Width 11.1 % (11.5-14.5); Red Blood Cell (RBC) Count 5.14 mill/uL (4.70-6.10); White Blood Cell (WBC) Count 6.1 10x3/uL (4.8-10.8)
[2022-11-25 13:16] LABS: ALT (SGPT) 50 U/L (8-55); AST (SGOT) 31 U/L (5-34); Albumin 4.7 g/dL (3.5-5.0); Alkaline Phosphatase 65 U/L (40-110); Anion Gap 21 mmol/L (10-20); BUN (Urea Nitrogen) 10 mg/dL (8.9-20.6); Bilirubin, Total 0.6 mg/dL (0.2-1.2); Calc. Creatinine Clearance 0 mL/min (70-130); Calcium 9.9 mg/dL (7.8-10.44); Carbon Dioxide 22 mmol/L (22-29); Chloride 106 mmol/L (98-107); Estimated GFR 107; Globulin 2.8 g/dL (2.4-3.5); Glucose 97 mg/dL (70-105); Potassium 3.8 mmol/L (3.5-5.1); Protein, Total 7.5 g/dL (6.0-8.3); Sodium 145 mmol/L (136-145)
[2022-11-25] MEDS ORDERED: Haloperidol Lactate 5 MG/ML VIAL ONE (13:24)
== END 2022-11-25 15:18 | disposition home or self-care (01) ==
LOC: ERS 12:30
DX: G40.409 Other generalized epilepsy and epileptic syndromes, not intractable, without status epilepticus (principal)
CPT/HCPCS: 80053; 85025; 96374; 96375; J1630; J2060

== ENCOUNTER 2022-12-05 09:55 | Emergency (ER) | payer OTHER ==
[2022-12-05] MEDS ORDERED: LORazepam 2 MG/ML SYR.(CARPUJECT) ONE (10:05)
== END 2022-12-05 12:06 | disposition home or self-care (01) ==
LOC: ERS 09:55
DX: R56.9 Unspecified convulsions (principal)
CPT/HCPCS: 36416; 96374; J2060

== ENCOUNTER 2023-02-13 08:18 | Emergency (ER) | payer OTHER ==
[2023-02-13] MEDS ORDERED: LORazepam 2 MG/ML SYR.(CARPUJECT) ONE (08:27)
[2023-02-13 08:43] LABS: #Eosinphils 0.2 thou/uL (0.0-0.7); #Monocytes 0.6 thou/uL (0.11-0.59); #Neutrophils 3.9 thou/uL (1.40-6.50); %Basophils 0.2 % (0.0-1.0); %Eosinophils 2.4 % (0.0-10.0); %Lymphocytes 27.4 % (21.0-51.0); %Monocytes 9.6 % (0.0-10.0); %Neutrophils 59.9 % (42.0-75.0); Hemoglobin 16.3 g/dL (14.0-18.0); Mean Corpuscular HGB CONC 35.4 g/dL (32.0-36.0); Mean Corpuscular Hemoglobin 29.9 pg (27.0-31.0); Mean Corpuscular Volume 84.2 fl (78.0-98.0); Platelet Count 296 10x3/uL (130-400); RBC Distribution Width 11.9 % (11.5-14.5); Red Blood Cell (RBC) Count 5.46 mill/uL (4.70-6.10); White Blood Cell (WBC) Count 6.5 10x3/uL (4.8-10.8)
[2023-02-13] MEDS ORDERED: Acetaminophen 500 MG TAB ONE (08:45)
[2023-02-13 09:07] LABS: ALT (SGPT) 30 U/L (8-55); AST (SGOT) 20 U/L (5-34); Albumin 4.8 g/dL (3.5-5.0); Alkaline Phosphatase 60 U/L (40-110); Anion Gap 22 mmol/L (10-20); BUN (Urea Nitrogen) 16 mg/dL (8.9-20.6); Bilirubin, Total 0.5 mg/dL (0.2-1.2); CK (CPK) 105 U/L (30-200); Calc. Creatinine Clearance 0 mL/min (70-130); Calcium 9.7 mg/dL (7.8-10.44); Carbon Dioxide 20 mmol/L (22-29); Chloride 101 mmol/L (98-107); Estimated GFR 113; Glucose 106 mg/dL (70-105); Potassium 3.5 mmol/L (3.5-5.1); Protein, Total 7.8 g/dL (6.0-8.3); Sodium 139 mmol/L (136-145)
[2023-02-13 11:46] LABS: Lactic Acid 0.9 mmol/L (0.5-2.2)
[2023-02-13] MEDS ORDERED: Ketorolac Tromethamine 30 MG/ML VIAL ONE (11:49)
[2023-02-13] MEDS ORDERED: Metoclopramide HCl 10 MG/2 ML VIAL ONE (11:49)
[2023-02-13] MEDS ORDERED: diphenhydrAMINE 50 MG/ML VIAL ONE (11:49)
[2023-02-13 12:26] LABS: Bacteria/HPF None Seen HPF (None Seen); Bilirubin Negative (Negative); Blood, Urine Negative (Negative); CAUTI Indications for Culture Dysuria,urgency,freq; Clarity Clear (Clear); Glucose, Urine (Dipstick) Normal (Negative); Ketone, Urine Negative (Negative); Leukocyte Negative Leu/uL (Negative); Nitrite Negative (Negative); Protein, Urine (Dipstick) Negative (Neg-Trace); RBC/HPF 0-3 HPF (0-3); Specific Gravity, Urine 1.021 (1.002-1.036); Squamous Epithelial None Seen HPF (0-3); Urobilinogen Normal mg/dL (Less than 2); WBC/HPF 0-3 HPF (0-3); pH, Urine 6.5 (5.0-9.0)
[2023-02-13 12:29] LABS: Urine Culture Reflex No No
== END 2023-02-13 13:10 | disposition home or self-care (01) ==
LOC: ERS 08:18
DX: R07.9 Chest pain, unspecified (principal); R56.9 Unspecified convulsions; R51.9 Headache, unspecified
CPT/HCPCS: 71045; 80053; 81001; 82550; 83605; 84484; 85025; 93005; 96365; 96375; J1200; J1885; J2060; J2765

== ENCOUNTER 2023-03-07 20:09 | Emergency (ER) | payer OTHER ==
[2023-03-07] MEDS ORDERED: Activated Charcoal/Sorbitol 25 GM/120 ML TUBE ONE ×2 (20:23→20:27)
[2023-03-07] MEDS ORDERED: LORazepam 2 MG/ML SYR.(CARPUJECT) ONE (20:23)
[2023-03-07] MEDS ORDERED: Ondansetron PF 4 MG/2 ML Vial ONE (20:36)
[2023-03-07 20:53] LABS: #Eosinphils 0.3 thou/uL (0.0-0.7); #Monocytes 0.6 thou/uL (0.11-0.59); #Neutrophils 5.5 thou/uL (1.40-6.50); %Basophils 0.2 % (0.0-1.0); %Eosinophils 3.2 % (0.0-10.0); %Lymphocytes 23.2 % (21.0-51.0); %Monocytes 7.4 % (0.0-10.0); Hematocrit 45.9 % (42.0-52.0); Hemoglobin 16.7 g/dL (14.0-18.0); Mean Corpuscular HGB CONC 36.4 g/dL (32.0-36.0); Mean Corpuscular Hemoglobin 30.4 pg (27.0-31.0); Mean Corpuscular Volume 83.5 fl (78.0-98.0); Mean Platelet Volume 9.3 fL (7.4-10.4); Platelet Count 349 10x3/uL (130-400); RBC Distribution Width 11.7 % (11.5-14.5); White Blood Cell (WBC) Count 8.4 10x3/uL (4.8-10.8)
[2023-03-07 21:14] LABS: Acetaminophen Less than 10 mcg/mL (10.0-30.0); Alcohol Less than 10.0 mg/dL (Less than 10); Salicylate Less than 8.0 mg/dL (15.0-30.0)
[2023-03-07 21:16] LABS: ALT (SGPT) 35 U/L (8-55); AST (SGOT) 29 U/L (5-34); Albumin 4.8 g/dL (3.5-5.0); Alkaline Phosphatase 68 U/L (40-110); Anion Gap 17 mmol/L (10-20); BUN (Urea Nitrogen) 11 mg/dL (8.9-20.6); Bilirubin, Total 0.4 mg/dL (0.2-1.2); CK (CPK) 148 U/L (30-200); Calc. Creatinine Clearance 0 mL/min (70-130); Calcium 9.8 mg/dL (7.8-10.44); Carbon Dioxide 22 mmol/L (22-29); Chloride 105 mmol/L (98-107); Estimated GFR 89; Globulin 3.3 g/dL (2.4-3.5); Glucose 99 mg/dL (70-105); Potassium 3.3 mmol/L (3.5-5.1); Protein, Total 8.1 g/dL (6.0-8.3); Sodium 141 mmol/L (136-145)
[2023-03-07 21:24] LABS: Amphetamine Not Detected (NotDetected); Barbiturates Screen Not Detected (NotDetected); Benzodiazepine Screen Not Detected (NotDetected); Cocaine Metabolite Screen Not Detected (NotDetected); Methadone Not Detected (NotDetected); Methamphetamine Not Detected (NotDetected); Opiate Screen Not Detected (NotDetected); Oxycodone Screen Not Detected (NotDetected); Phencyclidine (PCP) Not Detected (NotDetected); THC/Cannabinoid Screen Not Detected (NotDetected); Tricyclic Screen Not Detected (NotDetected)
[2023-03-07 21:25] LABS: Bacteria/HPF None Seen HPF (None Seen); Bilirubin Negative (Negative); Blood, Urine Negative (Negative); CAUTI Indications for Culture < 2yrs of age; Clarity Clear (Clear); Glucose, Urine (Dipstick) Normal (Negative); Ketone, Urine Negative (Negative); Leukocyte Negative Leu/uL (Negative); Nitrite Negative (Negative); Protein, Urine (Dipstick) 20 mg/dL (Neg-Trace); RBC/HPF 0-3 HPF (0-3); Specific Gravity, Urine 1.026 (1.002-1.036); Squamous Epithelial None Seen HPF (0-3); WBC/HPF 0-3 HPF (0-3); pH, Urine 6.5 (5.0-9.0)
[2023-03-07 21:26] LABS: Urine Culture Reflex Yes Yes
[2023-03-07 21:35] LABS: Magnesium 1.8 mg/dL (1.6-2.6)
== END 2023-03-08 10:23 ==
LOC: EEVIPCON 20:09 → ERS 20:09
DX: T46.5X2A Poisoning by other antihypertensive drugs, intentional self-harm, initial encounter (principal); T43.222A Poisoning by selective serotonin reuptake inhibitors, intentional self-harm, initial encounter
CPT/HCPCS: 80053; 80306; 80307; 81001; 82550; 83735; 84443; 85025; 87086; 93005; 96361; 96374; 96375; J2060; J2405

== ENCOUNTER 2024-01-11 14:03 | Observation (INO) | payer OTHER ==
[2024-01-11 14:24] LABS: #Basophils Less than 0.03 10x3/uL (0.0-0.2); %Basophils 0.1 % (0.0-1.0); %Eosinophils 1.9 % (0.0-10.0); %Lymphocytes 24.6 % (21.0-51.0); %Monocytes 7.6 % (0.0-10.0); %Neutrophils 65.5 % (42.0-75.0); Hematocrit 46.7 % (42.0-52.0); Hemoglobin 16.6 g/dL (14.0-18.0); Mean Corpuscular HGB CONC 35.5 g/dL (32.0-36.0); Mean Corpuscular Hemoglobin 30.3 pg (27.0-31.0); Mean Corpuscular Volume 85.4 fL (78.0-98.0); Mean Platelet Volume 8.9 fL (7.4-10.4); Platelet Count 340 10x3/uL (130-400); RBC Distribution Width 11.9 % (11.5-14.5); Red Blood Cell (RBC) Count 5.47 mill/uL (4.70-6.10)
[2024-01-11] MEDS ORDERED: LORazepam 2 MG/ML SYR.(CARPUJECT) ONE ×3 (14:25→18:20)
[2024-01-11] MEDS ORDERED: levETIRAcetam 500 MG (5 mL) VIAL ONE ×2 (14:35→17:21)
[2024-01-11 14:42] LABS: Critical Call Chem-Lactate NUR.JR24@1440
[2024-01-11 15:41] LABS: ALT (SGPT) 37 U/L (8-55); AST (SGOT) 27 U/L (5-34); Albumin 4.7 g/dL (3.5-5.0); Alkaline Phosphatase 68 U/L (40-110); Anion Gap 20 mmol/L (10-20); BUN (Urea Nitrogen) 19 mg/dL (8.9-20.6); Calc. Creatinine Clearance 0 mL/min (70-130); Calcium 9.8 mg/dL (7.8-10.44); Carbon Dioxide 17 mmol/L (22-29); Chloride 104 mmol/L (98-107); Estimated GFR 91; Globulin 3.4 g/dL (2.4-3.5); Glucose 97 mg/dL (70-105); Potassium 3.3 mmol/L (3.5-5.1); Protein, Total 8.1 g/dL (6.0-8.3); Sodium 138 mmol/L (136-145)
[2024-01-11 17:28] LABS: Lactic Acid 0.9 mmol/L (0.5-2.2)
[2024-01-11] MEDS ORDERED: Acetaminophen 325 MG TAB PO PRN (17:41)
[2024-01-11] MEDS: Lorazepam 2 MG/ML VIAL SLOW IVP PRN (18:46)
[2024-01-11 20:00] VITALS: BMI 35.6
[2024-01-11] MEDS: Famotidine 20 MG TAB PO SCH (20:00)
[2024-01-11] MEDS: Sodium Chloride 0.9% 1,000 ML IV SCH (22:00)
[2024-01-12 06:41] LABS: Anion Gap 9 mmol/L (10-20); BUN (Urea Nitrogen) 16 mg/dL (8.9-20.6); Calc. Creatinine Clearance 207 mL/min (70-130); Calcium 8.8 mg/dL (7.8-10.44); Carbon Dioxide 22 mmol/L (22-29); Chloride 108 mmol/L (98-107); Estimated GFR 125; Glucose 84 mg/dL (70-105); Potassium 3.3 mmol/L (3.5-5.1); Sodium 136 mmol/L (136-145)
[2024-01-12] MEDS: Potassium Chloride 20 MEQ TAB PO SCH (09:52)
[2024-01-12] MEDS: Enoxaparin 40 MG (0.4 mL) SYRINGE SC SCH (09:53)
[2024-01-12] MEDS: LORazepam 2 MG/ML SYR.(CARPUJECT) IVP PRN (10:54)
[2024-01-12 12:17] VITALS: BP 130/78; TEMP 97.9
[2024-01-12] MEDS: Potassium Bicarbonate/Cit Ac 20 MEQ TAB PO SCH (15:25)
== END 2024-01-12 15:55 | disposition home or self-care (01) ==
LOC: ERS 14:03 → 2SE 16:59
PROVIDERS: ADMIT Family Medicine; ATTEND Hospitalist
DX: G40.909 Epilepsy, unspecified, not intractable, without status epilepticus (principal); F41.1 Generalized anxiety disorder; F32.A Depression, unspecified; F98.8 Other specified behavioral and emotional disorders with onset usually occurring in childhood and adolescence; Z79.899 Other long term (current) drug therapy
CPT/HCPCS: 36415; 80048; 80053; 80177; 83605; 84146; 85025; 95700; 95711; 95819; 96361; 96372; 96374; 96375; 96376; G0378; J1650; J1953; J2060; J7050

== ENCOUNTER 2024-01-29 13:00 | Emergency (ER) | payer OTHER ==
[2024-01-29] MEDS ORDERED: LORazepam 2 MG/ML SYR.(CARPUJECT) ONE ×2 (13:50→15:42)
[2024-01-29 13:58] LABS: #Basophils Less than 0.03 10x3/uL (0.0-0.2); %Basophils 0.1 % (0.0-1.0); %Eosinophils 3.5 % (0.0-10.0); %Lymphocytes 20.6 % (21.0-51.0); %Monocytes 7.1 % (0.0-10.0); %Neutrophils 68.3 % (42.0-75.0); Hemoglobin 14.9 g/dL (14.0-18.0); Mean Corpuscular HGB CONC 35.5 g/dL (32.0-36.0); Mean Corpuscular Volume 84.5 fL (78.0-98.0); Mean Platelet Volume 9.1 fL (7.4-10.4); Platelet Count 293 10x3/uL (130-400); RBC Distribution Width 11.9 % (11.5-14.5); Red Blood Cell (RBC) Count 4.97 mill/uL (4.70-6.10)
[2024-01-29 14:17] LABS: Anion Gap 14 mmol/L (10-20); BUN (Urea Nitrogen) 16 mg/dL (8.9-20.6); Calc. Creatinine Clearance 0 mL/min (70-130); Calcium 9.1 mg/dL (7.8-10.44); Carbon Dioxide 21 mmol/L (22-29); Chloride 107 mmol/L (98-107); Estimated GFR 97; Glucose 90 mg/dL (70-105); Sodium 139 mmol/L (136-145)
[2024-01-29] MEDS ORDERED: Potassium Chloride 20 MEQ TAB ONE (15:37)
== END 2024-01-29 19:00 | disposition home or self-care (01) ==
LOC: ERS 13:00
DX: R56.9 Unspecified convulsions (principal); E87.6 Hypokalemia
CPT/HCPCS: 36416; 70450; 80048; 80177; 84146; 85025; 93005; 96374; 96376; J2060

== ENCOUNTER 2025-06-23 11:58 | Emergency (ER) | payer OTHER ==
[2025-06-23] MEDS ORDERED: levETIRAcetam 500 MG (5 mL) VIAL ONE (12:09)
[2025-06-23 12:26] LABS: #Basophils Less than 0.03 10x3/uL (0.0-0.2); #Eosinophils 0.04 10x3/uL (0.0-0.7); #Monocytes 0.34 10x3/uL (0.11-0.59); #Neutrophils 4.35 10x3/uL (1.40-6.50); %Basophils 0.2 % (0.0-1.0); %Eosinophils 0.7 % (0.0-10.0); %Lymphocytes 16.2 % (21.0-51.0); %Monocytes 6.0 % (0.0-10.0); %Neutrophils 76.4 % (42.0-75.0); Hematocrit 43.1 % (42.0-52.0); Hemoglobin 15.0 g/dL (14.0-18.0); Mean Corpuscular Hemoglobin 28.8 pg (27.0-31.0); Mean Corpuscular Volume 82.7 fL (78.0-98.0); Platelet Count 280 10x3/uL (130-400); Red Blood Cell (RBC) Count 5.21 mill/uL (4.70-6.10); White Blood Cell (WBC) Count 5.69 10x3/uL (4.8-10.8)
[2025-06-23 12:42] LABS: ALT (SGPT) 38 U/L (Less than 45); AST (SGOT) 25 U/L (11-34); Albumin 4.3 g/dL (3.1-4.5); Alkaline Phosphatase 57 U/L (40-110); Anion Gap 13 mmol/L (10-20); BUN (Urea Nitrogen) 12 mg/dL (8.9-20.6); Bilirubin, Total 0.5 mg/dL (0.3-1.2); Calc. Creatinine Clearance 0 mL/min (70-130); Calcium 9.2 mg/dL (7.8-10.44); Carbon Dioxide 24 mmol/L (22-29); Chloride 107 mmol/L (98-107); Globulin 2.7 g/dL (2.4-3.5); Glucose 98 mg/dL (70-105); Potassium 3.6 mmol/L (3.5-5.1); Sodium 140 mmol/L (136-145)
== END 2025-06-23 15:35 | disposition home or self-care (01) ==
LOC: ERS 11:58
DX: G40.909 Epilepsy, unspecified, not intractable, without status epilepticus (principal)
CPT/HCPCS: 80053; 85025; 96365; 96366; J1953